=== PATIENT | male | born 1960 | race Caucasian/White ===

== ENCOUNTER → 2017-02-26 | Outpatient (CLI) | payer OTHER ==
[~2017-02-26] MED LIST: ASPI325T17 PO; BECL8.7H NS; CARV6.252 PO; EMPA10TA PO; FENO145T32 PO; LISI2.5T PO; METF10002 PO; MULT-516 PO; OXYC-306 PO; RANI150T4 PO; ROSU20TA PO; SITA100T PO
[2017-02-26 15:47] LABS: BLOOD UREA NITROGEN 27 mg/dL (7-18)
[2017-02-26 16:07] LABS: ASPARTATE AMINO TRANSFERASE 31 U/L (15-37)
== END ==
LOC: STAR 14:12
PROVIDERS: ATTEND Orthopaedic Surgery
DX: Z01.818 Encounter for other preprocedural examination (principal); M17.12 Unilateral primary osteoarthritis, left knee; R94.31 Abnormal electrocardiogram [ECG] [EKG]; E11.9 Type 2 diabetes mellitus without complications
CPT/HCPCS: 36415; 80053; 81003; 87081; 93005

== ENCOUNTER 2017-03-03 07:48 | Inpatient (IN) | payer OTHER ==
[~2017-03-03] VITALS: Ht 175.3 cm; Wt 118.3 kg
[~2017-03-03 07:48] MED LIST changes: +EPINEPHRINE 1 MG/ML, 1ML ONE; +LIDOCAINE/PF 1%, 30ML ONE; +TRANEXAMIC ACID 100 MG/ML, 10ML ONE
[2017-03-03] MEDS ORDERED: KETAMINE 10 MG/ML, 20ML ONE (07:49)
[2017-03-03] MEDS ORDERED: MIDAZOLAM 1 MG/ML, 2ML ONE (07:49)
[2017-03-03] MEDS ORDERED: FENTANYL PF 250 MCG/5ML ONE (07:49)
[2017-03-03] MEDS ORDERED: BUPIVACAINE/PF 0.5% ONE (07:56)
[2017-03-03] MEDS ORDERED: ONDANSETRON 2MG/ML, 2ML ONE (07:56)
[2017-03-03] MEDS ORDERED: PROPOFOL 10 MG/ML, 20ML ONE (07:56)
[2017-03-03] MEDS ORDERED: DEXAMETHASONE 4 MG/ML, 1ML ONE (07:56)
[2017-03-03] MEDS ORDERED: CEFAZOLIN 1,000 MG ONE (07:56)
[2017-03-03] MEDS ORDERED: LIDOCAINE 1%, 2ML ONE (08:07)
[2017-03-03] MEDS ORDERED: LACTATED RINGERS 1,000 ML IV SCH (08:20)
[2017-03-03] MEDS ORDERED: LIDOCAINE 1%, 2ML SQ PRN (08:30)
[2017-03-03] MEDS ORDERED: VANCOMYCIN PMX 1GM/200ML 200 ML IV STA (08:33)
[2017-03-03] MEDS ORDERED: MAGNESIUM HYDROXIDE 8%, 30ML UDC PO PRN (09:00)
[2017-03-03] MEDS ORDERED: ONDANSETRON 2MG/ML, 2ML IV PRN (09:00)
[2017-03-03] MEDS ORDERED: DIAZEPAM 5 MG TABLET PO PRN (09:00)
[2017-03-03] MEDS ORDERED: BISACODYL 10 MG SUPP PR PRN (09:00)
[2017-03-03] MEDS ORDERED: ONDANSETRON 4 MG TABLET PO PRN (09:00)
[2017-03-03] MEDS ORDERED: DIPHENHYDRAMINE 25 MG CAPSULE PO PRN (09:00)
[2017-03-03] MEDS ORDERED: PROMETHAZINE 12.5 MG SUPP PR PRN (09:00)
[2017-03-03] MEDS ORDERED: SENNA/DOCUSATE TABLET PO PRN (09:00)
[2017-03-03] MEDS ORDERED: PROMETHAZINE 25 MG/ML, 1ML IM PRN (09:00)
[2017-03-03] MEDS ORDERED: MEPERIDINE/PF 25MG/0.5ML IVPush PRN (09:30)
[2017-03-03] MEDS ORDERED: LABETALOL 5MG/ML, 20ML IV PRN (09:30)
[2017-03-03] MEDS ORDERED: ALBUTEROL/IPRATROPIUM 2.5MG/0.5MG, 3 ML NPPB PRN (09:30)
[2017-03-03] MEDS ORDERED: ACETAMINOPHEN 325 MG TABLET PO PRN (09:30)
[2017-03-03] MEDS ORDERED: OXYcodone 5 MG/5 ML ORAL.SOL UDC PO PRN (09:30)
[2017-03-03] MEDS ORDERED: DIAZEPAM 5 MG/ML, 2ML IVPush PRN (09:30)
[2017-03-03] MEDS ORDERED: ONDANSETRON 2MG/ML, 2ML IVPush PRN (09:30)
[2017-03-03] MEDS ORDERED: LORazepam 2 MG/ML, 1ML IVPush PRN (09:30)
[2017-03-03] MEDS ORDERED: PROMETHAZINE 25 MG/ML, 1ML IV PRN (09:30)
[2017-03-03] MEDS ORDERED: hydrALAzine 20 MG/ML, 1ML IV PRN (09:30)
[2017-03-03] MEDS ORDERED: HYDROmorphone 1 MG/ML, 1ML IV PRN (09:30)
[2017-03-03] MEDS ORDERED: MIDAZOLAM 1 MG/ML, 2ML IV PRN (09:30)
[2017-03-03] MEDS ORDERED: HYDROmorphone 1 MG/ML, 1ML ONE (10:32)
[2017-03-03] MEDS: INSULIN REGULAR 100 UNITS/ML, 3ML VIAL SQ-INSULIN SCH ×3 (11:00→21:49)
[2017-03-03] MEDS: OXYcodone IR 5MG TABLET PO SCH ×3 (11:00→20:11)
[2017-03-03] MEDS ORDERED: ACETAMINOPHEN 650 MG/20.3 ML UDC ONE (11:11)
[2017-03-03] MEDS ORDERED: FENTANYL PF 100 MCG/2ML ONE (11:11)
[2017-03-03] MEDS ORDERED: OXYcodone 5 MG/5 ML ORAL.SOL UDC ONE (11:11)
[2017-03-03] MEDS: FENTANYL PF 100 MCG/2ML IV PRN ×2 (11:13→11:32)
[2017-03-03] MEDS: morphine SULFATE 10 MG/ML, 1ML IV PRN ×3 (13:28→21:33)
[2017-03-03] MEDS: ASPIRIN 325 MG TABLET PO SCH (13:35)
[2017-03-03] MEDS: FENOFIBRATE 145 MG TABLET PO SCH (13:36)
[2017-03-03] MEDS: LISINOPRIL 5 MG TABLET PO SCH (13:36)
[2017-03-03] MEDS: (Empagliflozin (Jardiance) 10 MG) PO SCH (13:36)
[2017-03-03] MEDS: metFORMIN 500 MG TABLET PO SCH ×2 (13:36→20:10)
[2017-03-03] MEDS: CARVEDILOL 6.25 MG TABLET PO SCH ×2 (13:44→20:11)
[2017-03-03] MEDS: CEFAZOLIN 2,000 MG in DEXTROSE 5% 50 ML IVPB SCH ×2 (13:44→21:33)
[2017-03-03] MEDS: POTASSIUM CHLORIDE 10 MEQ in SODIUM CHLORIDE 0.9% 1,000 ML IV SCH ×2 (13:44→22:30)
[2017-03-03 15:00] VITALS: BP 124/69
[2017-03-03] MEDS: DOCUSATE 100 MG CAPSULE PO SCH ×2 (15:48→20:11)
[2017-03-03] MEDS: ASPIRIN 325 MG TABLET EC PO SCH (17:14)
[2017-03-03 20:13] VITALS: BP 115/72
[2017-03-04 00:01] VITALS: BP 102/66
[2017-03-04] MEDS: OXYcodone IR 5MG TABLET PO SCH ×4 (00:07→11:46)
[2017-03-04] MEDS ORDERED: OXYC5CAP2 PO (02:42)
[2017-03-04] MEDS: morphine SULFATE 10 MG/ML, 1ML IV PRN ×3 (04:28→12:35)
[2017-03-04] MEDS: ASPIRIN 325 MG TABLET EC PO SCH ×2 (06:07→18:35)
[2017-03-04 07:35] VITALS: BP 125/71
[2017-03-04] MEDS: INSULIN REGULAR 100 UNITS/ML, 3ML VIAL SQ-INSULIN SCH ×4 (08:05→21:02)
[2017-03-04] MEDS: ACETAMINOPHEN 650 MG/20.3 ML UDC PO PRN ×2 (08:21→12:08)
[2017-03-04] MEDS: (Empagliflozin (Jardiance) 10 MG) PO SCH (09:00)
[2017-03-04] MEDS: ASPIRIN 325 MG TABLET PO SCH (09:42)
[2017-03-04] MEDS: metFORMIN 500 MG TABLET PO SCH ×2 (09:42→20:50)
[2017-03-04] MEDS: DOCUSATE 100 MG CAPSULE PO SCH ×2 (09:42→20:27)
[2017-03-04] MEDS: CARVEDILOL 6.25 MG TABLET PO SCH ×2 (09:42→20:49)
[2017-03-04] MEDS: LISINOPRIL 5 MG TABLET PO SCH (09:42)
[2017-03-04] MEDS: FENOFIBRATE 145 MG TABLET PO SCH (09:43)
[2017-03-04] MEDS: POTASSIUM CHLORIDE 10 MEQ in SODIUM CHLORIDE 0.9% 1,000 ML IV SCH ×2 (11:46→20:30)
[2017-03-04] MEDS ORDERED: OXYcodone IR 5MG TABLET PO PRN (13:30)
[2017-03-04] MEDS ORDERED: HYDROmorphone 4MG TABLET PO PRN (13:30)
[2017-03-04 13:52] VITALS: BP 98/62
[2017-03-04] MEDS: KETOROLAC 30 MG/1 ML IVPush PRN ×2 (14:41→20:48)
[2017-03-04] MEDS: OXYcodone/APAP 10/325MG TABLET PO PRN ×2 (16:25→20:27)
[2017-03-04 20:44] VITALS: BP 109/68
[2017-03-05] MEDS: OXYcodone/APAP 10/325MG TABLET PO PRN (00:28)
[2017-03-05 01:07] VITALS: BP 94/61
[2017-03-05] MEDS: KETOROLAC 30 MG/1 ML IVPush PRN (03:12)
[2017-03-05] MEDS: ASPIRIN 325 MG TABLET EC PO SCH (06:00)
[2017-03-05] MEDS: POTASSIUM CHLORIDE 10 MEQ in SODIUM CHLORIDE 0.9% 1,000 ML IV SCH (06:30)
[2017-03-05 07:30] VITALS: BP 80/51
[2017-03-05] MEDS: INSULIN REGULAR 100 UNITS/ML, 3ML VIAL SQ-INSULIN SCH ×2 (07:59→11:00)
[2017-03-05] MEDS: LISINOPRIL 5 MG TABLET PO SCH (09:00)
[2017-03-05] MEDS: ASPIRIN 325 MG TABLET PO SCH (09:00)
[2017-03-05] MEDS: FENOFIBRATE 145 MG TABLET PO SCH (09:00)
[2017-03-05] MEDS: DOCUSATE 100 MG CAPSULE PO SCH (09:00)
[2017-03-05] MEDS: (Empagliflozin (Jardiance) 10 MG) PO SCH (09:00)
[2017-03-05] MEDS: metFORMIN 500 MG TABLET PO SCH (09:00)
[2017-03-05] MEDS: CARVEDILOL 6.25 MG TABLET PO SCH (09:00)
== END 2017-03-05 12:35 | disposition home or self-care (01) | DRG 470 ==
LOC: ORIP 07:48 → 4NOR 11:59 → DCLOUNGE 03-05 12:23
PROVIDERS: ADMIT Orthopaedic Surgery; ATTEND Orthopaedic Surgery
PROC: 0SRD0J9 Replacement of Left Knee Joint with Synthetic Substitute, Cemented, Open Approach (ICD-10-PCS; principal; 2017-03-03 09:30)
DX: M17.12 Unilateral primary osteoarthritis, left knee (principal); E11.9 Type 2 diabetes mellitus without complications; I10 Essential (primary) hypertension; E78.5 Hyperlipidemia, unspecified; K21.9 Gastro-esophageal reflux disease without esophagitis; I25.10 Atherosclerotic heart disease of native coronary artery without angina pectoris
CPT/HCPCS: 82962; C1713; J0171; J0690; J1100; J1170; J1815; J1885; J2250; J2405; J2704; J3010; J3370; J3480; J3490; C1776; J2270; J7030; J7120

== ENCOUNTER 2018-02-26 13:10 | Inpatient (IN) | payer OTHER ==
[~2018-02-26] VITALS: Ht 175.3 cm; Wt 109.5 kg
[~2018-02-26 13:10] MED LIST changes: -EPINEPHRINE 1 MG/ML, 1ML ONE; -LIDOCAINE/PF 1%, 30ML ONE; +OXYC5CAP2 PO; -TRANEXAMIC ACID 100 MG/ML, 10ML ONE
[2018-02-26 15:32] LABS: BASOPHILS # (AUTO) 0.02 x10^3/uL (0-0.1); BASOPHILS % (AUTO) 0 % (0-1); EOSINOPHILS # (AUTO) 0.06 x10^3/uL (0-0.4); EOSINOPHILS % (AUTO) 1 % (1-7); LYMPHOCYTES # (AUTO) 1.13 x10^3/uL (1-3.4); LYMPHOCYTES % (AUTO) 19 % (22-44); MD NO; MEAN CORPUSCULAR HEMOGLOBIN 31.5 pg (27.5-34.5); MEAN CORPUSCULAR HGB CONC 34.3 g/dL (33.2-36.2); MEAN CORPUSCULAR VOLUME 91.8 fL (81-97); MEAN PLATELET VOLUME 6.6 fL (7.4-10.4); MONOCYTES # (AUTO) 0.79 x10^3/uL (0.2-0.8); MONOCYTES % (AUTO) 14 % (2-9); NEUTROPHILS # (AUTO) 3.84 x10^3/uL (1.8-6.8); NEUTROPHILS % (AUTO) 66 % (42-75); PLATELET COUNT 149 x10^3/uL (130-400); RED CELL DISTRIBUTION WIDTH 14.6 % (9.4-14.8)
[2018-02-26 15:34] LABS: ALBUMIN 3.9 g/dL (3.4-5.0); ANION GAP 10 mmol/L (5-15); CALCIUM 8.6 mg/dL (8.5-10.1); CHLORIDE 101 mmol/L (98-107); CREATININE 1.33 mg/dL (0.7-1.3)
[2018-02-26] MEDS ORDERED: CLINDAMYCIN PMX 600MG/50ML 50 ML IV ONE (16:00)
[2018-02-26] MEDS ORDERED: OXYcodone/APAP 5/325MG TABLET ONE (16:08)
[2018-02-26] MEDS ORDERED: CLINDAMYCIN PMX 600MG/50ML 50 ML ONE (16:09)
[2018-02-26] MEDS ORDERED: ROSU5TAB11 PO (16:21)
[2018-02-26] MEDS ORDERED: CLAR500T PO (16:21)
[2018-02-26] MEDS ORDERED: LISI5TAB7 PO ×2 (16:21→16:26)
[2018-02-26] MEDS ORDERED: FENO145T32 PO (16:21)
[2018-02-26] MEDS ORDERED: OXYcodone/APAP 5/325MG TABLET PO ONE (16:30)
[2018-02-26] MEDS ORDERED: CLINDAMYCIN PMX 900MG/50ML 50 ML IV SCH (16:30)
[2018-02-26] MEDS ORDERED: methylPREDNISolone SOD SUCC 125 MG/2 ML IVPush ONE (16:30)
[2018-02-26] MEDS ORDERED: MAGN300C PO (16:32)
[2018-02-26] MEDS ORDERED: TRIA40VI IM (16:32)
[2018-02-26] MEDS ORDERED: SITA100T PO (16:32)
[2018-02-26] MEDS ORDERED: TADA20TA PO (16:32)
[2018-02-26] MEDS ORDERED: KETOROLAC 30 MG/1 ML IV PRN (17:00)
[2018-02-26] MEDS ORDERED: ONDANSETRON 2MG/ML, 2ML IVPush PRN (17:00)
[2018-02-26] MEDS ORDERED: DEXTROSE 4 GM TAB.CHEW PO PRN (17:00)
[2018-02-26] MEDS ORDERED: ACETAMINOPHEN 325 MG TABLET PO PRN (17:00)
[2018-02-26] MEDS ORDERED: DOCUSATE 100 MG CAPSULE PO PRN (17:00)
[2018-02-26] MEDS ORDERED: POLYETHYLENE GLYCOL 17 GM PACKET PO PRN (17:00)
[2018-02-26] MEDS ORDERED: DEXTROSE 50%, 50ML SYRINGE IVPush PRN (17:00)
[2018-02-26] MEDS ORDERED: morphine SULFATE 10 MG/ML, 1ML IVPush PRN (17:00)
[2018-02-26] MEDS ORDERED: ONDANSETRON ODT 4 MG PO PRN (17:00)
[2018-02-26] MEDS: INSULIN LISPRO 100 UNITS/ML, PEN SQ-INSULIN SCH ×2 (17:00→20:56)
[2018-02-26] MEDS ORDERED: GLUCAGON 1 MG IM PRN (17:00)
[2018-02-26] MEDS ORDERED: PHARMACY MAY ADJ FOR RENAL FX MC PRN (17:00)
[2018-02-26] MEDS ORDERED: DIPHENHYDRAMINE 25 MG CAPSULE PO PRN (17:00)
[2018-02-26 17:17] LABS: HEMOGLOBIN A1C 6.8 % (4.2-6.3)
[2018-02-26] MEDS: SODIUM CHLORIDE 0.9% 1,000 ML IV SCH (17:40)
[2018-02-26 17:48] VITALS: BP 105/77
[2018-02-26 18:15] LABS: HCT (SEDRATE) 38.5 % (39.2-51.8)
[2018-02-26 20:15] VITALS: BP 126/83
[2018-02-26] MEDS: SODIUM CHLORIDE FLUSH 10ML SYR IVF SCH (20:55)
[2018-02-26] MEDS: SODIUM CHLORIDE NASAL SPRAY 45ML BOTTLE NAS SCH (20:57)
[2018-02-26] MEDS: FLUTICASONE NASAL SPRAY 16GM NAS SCH (20:57)
[2018-02-26] MEDS: FAMOTIDINE 20 MG TABLET PO SCH (20:58)
[2018-02-26] MEDS: MAGNESIUM OXIDE 400 MG TABLET PO SCH (20:58)
[2018-02-26] MEDS: HYDROcodone/APAP 5/325 TABLET PO PRN (20:58)
[2018-02-26] MEDS: CARVEDILOL 6.25 MG TABLET PO SCH (20:58)
[2018-02-26] MEDS: HEPARIN 5,000 UNITS/ML, 1ML SQ SCH (22:00)
[2018-02-27] MEDS: CLINDAMYCIN PMX 900MG/50ML 50 ML IV SCH ×4 (00:03→23:55)
[2018-02-27] MEDS: SODIUM CHLORIDE 0.9% 1,000 ML IV SCH ×2 (00:06→08:17)
[2018-02-27 00:15] VITALS: BP 112/71
[2018-02-27 00:30] VITALS: BP 170/108
[2018-02-27] MEDS: HYDROcodone/APAP 5/325 TABLET PO PRN ×5 (01:20→18:39)
[2018-02-27 05:25] LABS: ANION GAP 10 mmol/L (5-15); BASOPHILS # (AUTO) 0.01 x10^3/uL (0-0.1); BASOPHILS % (AUTO) 0 % (0-1); CALCIUM 8.4 mg/dL (8.5-10.1); CHLORIDE 102 mmol/L (98-107); CREATININE 1.22 mg/dL (0.7-1.3); EOSINOPHILS % (AUTO) 0 % (1-7); LYMPHOCYTES # (AUTO) 0.63 x10^3/uL (1-3.4); LYMPHOCYTES % (AUTO) 12 % (22-44); MD NO; MEAN CORPUSCULAR HGB CONC 34.1 g/dL (33.2-36.2); MEAN CORPUSCULAR VOLUME 90.9 fL (81-97); MEAN PLATELET VOLUME 6.9 fL (7.4-10.4); MONOCYTES # (AUTO) 0.12 x10^3/uL (0.2-0.8); MONOCYTES % (AUTO) 2 % (2-9); NEUTROPHILS # (AUTO) 4.41 x10^3/uL (1.8-6.8); NEUTROPHILS % (AUTO) 85 % (42-75); PLATELET COUNT 154 x10^3/uL (130-400); RED BLOOD COUNT 4.05 x10^6/uL (4.38-5.82); RED CELL DISTRIBUTION WIDTH 14.1 % (9.4-14.8)
[2018-02-27] MEDS: HEPARIN 5,000 UNITS/ML, 1ML SQ SCH ×3 (05:41→21:54)
[2018-02-27 08:11] VITALS: BP 133/82
[2018-02-27] MEDS: INSULIN LISPRO 100 UNITS/ML, PEN SQ-INSULIN SCH ×5 (08:14→21:53)
[2018-02-27] MEDS: SODIUM CHLORIDE FLUSH 10ML SYR IVF SCH ×2 (08:15→21:29)
[2018-02-27] MEDS: MAGNESIUM OXIDE 400 MG TABLET PO SCH ×2 (08:15→21:30)
[2018-02-27] MEDS: SODIUM CHLORIDE NASAL SPRAY 45ML BOTTLE NAS SCH ×2 (08:15→21:29)
[2018-02-27] MEDS: ASPIRIN 325 MG TABLET PO SCH (08:15)
[2018-02-27] MEDS: FENOFIBRATE 145 MG TABLET PO SCH (08:16)
[2018-02-27] MEDS: FLUTICASONE NASAL SPRAY 16GM NAS SCH ×2 (08:16→21:29)
[2018-02-27] MEDS: FAMOTIDINE 20 MG TABLET PO SCH ×2 (08:16→21:30)
[2018-02-27] MEDS: CARVEDILOL 6.25 MG TABLET PO SCH ×2 (08:16→21:30)
[2018-02-27] MEDS: ATORVASTATIN 10 MG TABLET PO SCH (08:16)
[2018-02-27] MEDS: LISINOPRIL 5 MG TABLET PO SCH (08:16)
[2018-02-27] MEDS: MULTIVITAMIN 1 TABLET PO SCH (08:16)
[2018-02-27] MEDS: MORPHINE SULFATE 4 MG/ML, 1ML IVPush PRN ×3 (11:55→21:31)
[2018-02-27 14:00] VITALS: BP 107/75
[2018-02-27 14:15] VITALS: BP 165/97
[2018-02-27 19:56] VITALS: BP 123/80
[2018-02-28 00:15] VITALS: BP 118/74
[2018-02-28] MEDS: MORPHINE SULFATE 4 MG/ML, 1ML IVPush PRN ×2 (03:07→12:51)
[2018-02-28] MEDS: HEPARIN 5,000 UNITS/ML, 1ML SQ SCH ×2 (06:00→12:46)
[2018-02-28] MEDS: INSULIN LISPRO 100 UNITS/ML, PEN SQ-INSULIN SCH ×2 (07:15→11:41)
[2018-02-28] MEDS: CLINDAMYCIN PMX 900MG/50ML 50 ML IV SCH (07:17)
[2018-02-28] MEDS: SODIUM CHLORIDE FLUSH 10ML SYR IVF SCH (07:18)
[2018-02-28 08:24] VITALS: BP 146/87
[2018-02-28] MEDS: ATORVASTATIN 10 MG TABLET PO SCH (09:33)
[2018-02-28] MEDS: FAMOTIDINE 20 MG TABLET PO SCH (09:33)
[2018-02-28] MEDS: ASPIRIN 325 MG TABLET PO SCH (09:33)
[2018-02-28] MEDS: CARVEDILOL 6.25 MG TABLET PO SCH (09:33)
[2018-02-28] MEDS: LISINOPRIL 5 MG TABLET PO SCH (09:33)
[2018-02-28] MEDS: MULTIVITAMIN 1 TABLET PO SCH (09:33)
[2018-02-28] MEDS: FENOFIBRATE 145 MG TABLET PO SCH (09:33)
[2018-02-28] MEDS: MAGNESIUM OXIDE 400 MG TABLET PO SCH (09:33)
[2018-02-28] MEDS: FLUTICASONE NASAL SPRAY 16GM NAS SCH (09:34)
[2018-02-28] MEDS: SODIUM CHLORIDE NASAL SPRAY 45ML BOTTLE NAS SCH (09:35)
[2018-02-28] MEDS: HYDROcodone/APAP 5/325 TABLET PO PRN (09:45)
[2018-02-28] MEDS ORDERED: OXYC5TAB3 PO (11:50)
[2018-02-28] MEDS ORDERED: METH4TAB2 PO (11:50)
[2018-02-28] MEDS ORDERED: CLIN300C8 PO (12:22)
[2018-02-28 13:18] VITALS: BP 127/82
== END 2018-02-28 13:25 | disposition home or self-care (01) | DRG 153 ==
LOC: ED 15:54 → EDIP 15:55 → ED 16:08 → 3NE 17:16
PROVIDERS: ADMIT Family Medicine; ATTEND Family Medicine
PROC: 5A09357 Assistance with Respiratory Ventilation, Less than 24 Consecutive Hours, Continuous Positive Airway Pressure (ICD-10-PCS; principal; 2018-02-27)
DX: H70.002 Acute mastoiditis without complications, left ear (principal); H70 Mastoiditis and related conditions; J32.9 Chronic sinusitis, unspecified; D64.9 Anemia, unspecified; E11.22 Type 2 diabetes mellitus with diabetic chronic kidney disease; N18.9 Chronic kidney disease, unspecified; I12.9 Hypertensive chronic kidney disease with stage 1 through stage 4 chronic kidney disease, or unspecified chronic kidney disease; H70.209 Unspecified petrositis, unspecified ear; E11.21 Type 2 diabetes mellitus with diabetic nephropathy; H66.002 Acute suppurative otitis media without spontaneous rupture of ear drum, left ear; H66.92 Otitis media, unspecified, left ear; G47.33 Obstructive sleep apnea (adult) (pediatric); I25.10 Atherosclerotic heart disease of native coronary artery without angina pectoris; Z83.3 Family history of diabetes mellitus; Z88.0 Allergy status to penicillin; Z95.5 Presence of coronary angioplasty implant and graft; Z79.899 Other long term (current) drug therapy; Z79.82 Long term (current) use of aspirin
CPT/HCPCS: 36415; 70480; 80048; 82040; 82962; 83036; 84145; 85025; 85651; 86140; 99285; G0378; J1644; J1885; J2405; J1815; J2930; J7030; J7512

== ENCOUNTER → 2018-10-01 | Outpatient (CLI) | payer OTHER ==
[~2018-10-01] MED LIST changes: +CLAR-36 PO; +CLIN300C8 PO; +LISI5TAB7 PO; +MAGN300C PO; +METH4TAB2 PO; +OXYC5TAB3 PO; -ROSU20TA PO; +ROSU20TA2 PO; +ROSU5TAB11 PO; +TADA20TA PO; +TRIA40VI IM
== END | disposition home or self-care (01) ==
LOC: CFH 09:48
PROVIDERS: ATTEND Internal Medicine Cardiovascular Disease
DX: I25.10 Atherosclerotic heart disease of native coronary artery without angina pectoris (principal); I10 Essential (primary) hypertension; E78.5 Hyperlipidemia, unspecified; E11.9 Type 2 diabetes mellitus without complications; Z87.891 Personal history of nicotine dependence
CPT/HCPCS: 0399T; 93306